=== PATIENT | male | born 1980 | race Caucasian/White ===

== ENCOUNTER 2016-12-24 18:27 | Emergency (ER) | payer OTHER ==
[~2016-12-24] VITALS: Ht 167.6 cm; Wt 76.8 kg
[2016-12-24 18:33] VITALS: TEMP 36.7; Ht 167.6 cm; Wt 76.8 kg
[2016-12-24] MEDS ORDERED: IBUP-1427 PO (19:52)
--- NOTE | 2016-12-24 19:53 | DIAGNOSTIC IMAGING REPORT ---
CT SCAN OF THE FACIAL BONES WITHOUT IV CONTRAST CLINICAL HISTORY: Facial injury. COMPARISON STUDY: No priors. TECHNIQUE: High-resolution CT scan of the facial bones is performed. Images are reviewed in the axial, sagittal, and coronal planes. IV contrast was not administered for this examination. CT DOSE: 646.92 mGy.cm FINDINGS: The skeletal structures are well mineralized. There is a comminuted fracture of the left orbital floor with depressed fragments and herniation of orbital fat. There is no evidence of extraocular muscle entrapment. There is gas present within the left orbital space. There is mild left-sided proptosis. No orbital hematoma is clearly identified. The right bony orbit is intact and the right-sided orbital contents are within normal limits. The zygomatic arches, nasal bones, and pterygoid plates are preserved. There is rightward deviation of the bony nasal septum. The maxilla and mandible are intact. Hyperdense fluid within the left maxillary antrum is consistent with blood. The remaining paranasal sinuses and the mastoid air cells are clear. The visualized calvarium and upper cervical spine are maintained. Partially imaged brain parenchyma is within normal limits. There is left periorbital and premalar soft tissue contusion with foci of gas within the superficial and deep left facial soft tissues. There is a large periapical lucency seen involving the most posterior left maxillary molar as well as the left maxillary central incisor. IMPRESSION: 1. There is a comminuted left orbital floor fracture with depressed fragments and herniation of orbital fat. 2. There is mild left-sided proptosis and gas within the left orbital space. There is no clear evidence of orbital hematoma or extraocular muscle entrapment. 3. No additional fracture is seen. 4. There is left periorbital and premalar soft tissue contusion with foci of gas within the subcutaneous and deep left facial soft tissue. 5. Layering blood is present within the left maxillary antrum. 6. There are large periapical lucencies involving maxillary teeth as above. Follow-up with dentistry is recommended. Electronically signed by: Nilson Miles M.D. 12/24/2016 7:51 PM Dictated Date/Time: 12/24/2016 7:43 PM
[2016-12-24] MEDS ORDERED: AMPICILLIN/SULBACTAM SOD INJ 3,000 MG in SODIUM CHLORIDE 0.9% 100ML 100 ML IV STA (20:17)
[2016-12-24 20:34] LABS: BASO % 0.6 %; BASO ABS # 0.05 K/uL (0-0.2); COMPLETE YES; EOS % 2.5 %; HEMATOCRIT 40.6 % (42-52); IG% 0.1 %; LYMPH % 44.1 %; LYMPH ABS # 3.57 K/uL (1.2-3.4); MEAN CELL VOLUME 83.7 fL (80-100); MEAN CORPUSCULAR HEMOGLOBIN 30.5 pg (25-34); MEAN CORPUSCULAR HGB CONC 36.5 g/dl (32-36); MEAN PLATELET VOLUME 9.9 fL (7.4-10.4); MONO % 8.3 %; NEUT % 44.4 %; PLATELET COUNT 230 K/uL (130-400); RED BLOOD COUNT 4.85 M/uL (4.7-6.1); WHITE BLOOD COUNT 8.09 K/uL (4.8-10.8)
[2016-12-24 20:57] LABS: BUN/CREATININE RATIO 11.5 (10-20); CALCIUM 8.5 mg/dl (8.5-10.1); CREATININE 0.99 mg/dl (0.60-1.40); POTASSIUM 3.7 mmol/L (3.5-5.1)
[2016-12-24] MEDS ORDERED: AMOX875T PO (21:19)
[2016-12-24 21:30] VITALS: BP 142/80; PULSE 61; O2SAT 98
--- NOTE | 2016-12-24 23:17 | EMERGENCY ROOM VISIT NOTE ---
History First contact with patient: 19:00 Chief Complaint: FACIAL PAIN/INJURY Stated Complaint: RIGHT EYE PAIN History of Present Illness The patient is a 36 year old male [facility] inmate who presents to the Emergency Room with complaints of a left facial injury after he accidentally ran into a pull up bar while pushing a snow shovel. The patient reports that he was moving at a high rate of speed. The patient denies any loss of consciousness or neck pain. The patient reports that he did blow his nose after the injury and noticed swelling of the soft tissue around his left eye. The patient denies any blurred or double vision. He does notice some mild discomfort in the eye itself with movement. He denies any epistaxis. He rates his discomfort a 7 out of 10. Tetanus immunization is up-to-date. Review of Systems 10 system review was performed and was negative except for pertinent positives and negatives as indicated in history of present illness Past Medical/Surgical History Medical Problems: (1) Hepatitis C (2) Hypertension Surgical Problems: (1) No history of previous surgery Family History Unknown Social History Smoking Status: Current Every Day Smoker Alcohol Use: none Marital Status: single Housing Status: other (incarcerated) Current/Historical Medications Scheduled Amoxicillin & Pot Clavulanate (Augmentin 875-125 mg), 1 TAB PO BID Scheduled PRN Ibuprofen Tab (Motrin), 600 MG PO Q6H PRN for Pain Allergies Coded Allergies: No Known Allergies (Unverified , 12/24/16) Physical Exam Vital Signs Date Time Temp Pulse Resp B/P Pulse Ox O2 Delivery O2 Flow Rate FiO2 12/24/16 21:30 61 18 142/80 98 12/24/16 21:17 55 16 133/89 95 Room Air 12/24/16 20:41 68 18 127/91 97 Room Air 12/24/16 18:33 36.7 65 18 159/99 97 Room Air Physical Exam CONSTITUTIONAL: Healthy and well nourished. Alert and oriented X 3 with positive affect. Patient does not appear in any acute distress. HEENT: Patient has significant left periorbital edema. Globe is intact without subconjunctival hemorrhage. No hemotympanum noted. Patient has mild discomfort with extraocular movements, however no signs of entrapment. Pupils equal, round and reactive. No epistaxis noted. The patient does have a superficial laceration under the eye that will not require primary closure. The patient has notable tenderness to palpation of the inferior orbital rim. NECK: Full active range of motion without discomfort. RESPIRATORY: Clear to auscultation bilaterally with no wheezing, crackles, rhonchi or stridor. CARDIOVASCULAR: Regular rate and rhythm with no murmurs, rubs or gallops. MUSCULOSKELETAL: Full range of motion of all joints without discomfort. INTEGUMENTARY: No rash or other significant dermatologic conditions noted. NEUROLOGIC: Cranial nerves II-XII grossly intact. No focal neurologic deficits noted. Medical Decision & Procedures ER Provider Diagnostic Interpretation: Noncontrast CT of the facial bones shows a comminuted and depressed left orbital floor fracture. Radiologist report is as follows: CT SCAN OF THE FACIAL BONES WITHOUT IV CONTRAST CLINICAL HISTORY: Facial injury. COMPARISON STUDY: No priors. TECHNIQUE: High-resolution CT scan of the facial bones is performed. Images are reviewed in the axial, sagittal, and coronal planes. IV contrast was not administered for this examination. CT DOSE: 646.92 mGy.cm FINDINGS: The skeletal structures are well mineralized. There is a comminuted fracture of the left orbital floor with depressed fragments and herniation of orbital fat. There is no evidence of extraocular muscle entrapment. There is gas present within the left orbital space. There is mild left-sided proptosis. No orbital hematoma is clearly identified. The right bony orbit is intact and the right-sided orbital contents are within normal limits. The zygomatic arches, nasal bones, and pterygoid plates are preserved. There is rightward deviation of the bony nasal septum. The maxilla and mandible are intact. Hyperdense fluid within the left maxillary antrum is consistent with blood. The remaining paranasal sinuses and the mastoid air cells are clear. The visualized calvarium and upper cervical spine are maintained. Partially imaged brain parenchyma is within normal limits. There is left periorbital and premalar soft tissue contusion with foci of gas within the superficial and deep left facial soft tissues. There is a large periapical lucency seen involving the most posterior left maxillary molar as well as the left maxillary central incisor. IMPRESSION: 1. There is a comminuted left orbital floor fracture with depressed fragments and herniation of orbital fat. 2. There is mild left-sided proptosis and gas within the left orbital space. There is no clear evidence of orbital hematoma or extraocular muscle entrapment. 3. No additional fracture is seen. 4. There is left periorbital and premalar soft tissue contusion with foci of gas within the subcutaneous and deep left facial soft tissue. 5. Layering blood is present within the left maxillary antrum. 6. There are large periapical lucencies involving maxillary teeth as above. Follow-up with dentistry is recommended. Laboratory Results 12/24/16 20:20 Red Blood Count 4.85, Mean Corpuscular Volume 83.7, Mean Corpuscular Hemoglobin 30.5, Mean Corpuscular Hemoglobin Concent 36.5, Mean Platelet Volume 9.9, Neutrophils (%) (Auto) 44.4, Lymphocytes (%) (Auto) 44.1, Monocytes (%) (Auto) 8.3, Eosinophils (%) (Auto) 2.5, Basophils (%) (Auto) 0.6, Neutrophils # (Auto) 3.59, Lymphocytes # (Auto) 3.57, Monocytes # (Auto) 0.67, Eosinophils # (Auto) 0.20, Basophils # (Auto) 0.05 12/24/16 20:20 Test 12/24/16 20:20 White Blood Count 8.09 K/uL (4.8-10.8) Red Blood Count 4.85 M/uL (4.7-6.1) Hemoglobin 14.8 g/dL (14.0-18.0) Hematocrit 40.6 % (42-52) Mean Corpuscular Volume 83.7 fL (80-100) Mean Corpuscular Hemoglobin 30.5 pg (25-34) Mean Corpuscular Hemoglobin Concent 36.5 g/dl (32-36) Platelet Count 230 K/uL (130-400) Mean Platelet Volume 9.9 fL (7.4-10.4) Neutrophils (%) (Auto) 44.4 % Lymphocytes (%) (Auto) 44.1 % Monocytes (%) (Auto) 8.3 % Eosinophils (%) (Auto) 2.5 % Basophils (%) (Auto) 0.6 % Neutrophils # (Auto) 3.59 K/uL (1.4-6.5) Lymphocytes # (Auto) 3.57 K/uL (1.2-3.4) Monocytes # (Auto) 0.67 K/uL (0.11-0.59) Eosinophils # (Auto) 0.20 K/uL (0-0.5) Basophils # (Auto) 0.05 K/uL (0-0.2) RDW Standard Deviation 37.8 fL (36.4-46.3) RDW Coefficient of Variation 12.5 % (11.5-14.5) Immature Granulocyte % (Auto) 0.1 % Immature Granulocyte # (Auto) 0.01 K/uL (0.00-0.02) Anion Gap 8.0 mmol/L (3-11) Est Creatinine Clear Calc Drug Dose 99.7 ml/min Estimated GFR () 112.3 Estimated GFR (Non- 96.9 BUN/Creatinine Ratio 11.5 (10-20) Calcium Level 8.5 mg/dl (8.5-10.1) Medications Administered Medications (Trade) Dose Ordered Sig/Jose M Route Start Time Stop Time Status Last Admin Dose Admin Ampicillin Sodium/ Sulbactam Sodium/ Sodium Chloride (Unasyn Inj/Nss 100ml) 108 ml @ 200 mls/hr NOW STAT IV 12/24/16 20:17 12/24/16 20:49 DC 12/24/16 20:41 200 MLS/HR ED Course Patient history and physical exam were performed. Nurse's notes were reviewed. The patient refused any analgesics on initial exam. Noncontrast CT of the facial bones shows a comminuted left maxillary floor fracture as described in the previous Diagnostic Interpretation section. Findings were discussed with the patient. The case was also discussed with Dr. Mckeon, who suggested IV antibiotics and maxillofacial consultation. IV access was established, and labs were drawn. The patient was administered Unasyn 3 g IV infusion. He still refused any analgesics. The case was then discussed with Dr. Moran, maxillary facial surgeon, who recommended IV and prescription antibiotics. He will see the patient in his office tomorrow. The patient was encouraged to intermittently apply ice to the eye for swelling. Ibuprofen or Tylenol as needed for pain. He prescription was provided for Augmentin 875 mg twice a day 10 days. The patient was encouraged to sleep with his head elevated. He was also instructed to avoid blowing his nose. Contact information was provided for Dr. Moran's office. The patient was happy with plan of care, and rated his pain a 3 out of 10 at the time of discharge. Medical Decision Impression Primary Impression: Fracture of orbital floor Additional Impression: Facial laceration Departure Information Prescriptions Amoxicillin & Pot Clavulanate (Augmentin 875-125 mg) 1 Tab Tab 1 TAB PO BID for 10 Days, #20 TAB Prov: Morris Sal PA 12/24/16 Patient Instructions [facility] Problem Qualifiers Primary Impression: Fracture of orbital floor Encounter type: initial encounter Fracture type: closed Laterality: left Qualified Codes: S02.32XA - Fracture of orbital floor, left side, initial encounter for closed fracture Additional Impression: Facial laceration Encounter type: initial encounter Qualified Codes: S01.81XA - Laceration without foreign body of other part of head, initial encounter
== END 2016-12-24 21:30 | disposition home or self-care (01) ==
LOC: C.EDB 18:31 → C.EDD 21:30
DX: S01.81XA Laceration without foreign body of other part of head, initial encounter (principal); S02.32XA Fracture of orbital floor, left side, initial encounter for closed fracture; F17.210 Nicotine dependence, cigarettes, uncomplicated; I10 Essential (primary) hypertension; W22.8XXA Striking against or struck by other objects, initial encounter; Y93.H1 Activity, digging, shoveling and raking

== ENCOUNTER 2020-04-21 15:08 | Inpatient (IN) ==
[2020-04-21] MEDS ORDERED: PIPERACILLIN/TAZOBACTAM 4.5 GM/120 ML BAG IV STA (16:24)
[2020-04-21] MEDS ORDERED: SODIUM CHLORIDE 0.9% 1000ML 1,000 ML IV SCH (16:30)
--- NOTE | 2020-04-21 16:32 | Emergency Department Note ---
History of Present Illness General Chief complaint: Ear Pain/Problem Stated complaint: R EAR PAIN GOING DOWN NECK AND CHEST Time Seen by Provider: 04/21/20 16:16 Source: patient Mode of arrival: other ([facility] staff) Limitations: no limitations History of Present Illness Provider complaint: right neck infection Onset (ago): week(s) 2 Maximum Pain Intensity: 10 This is a 48-year-old male who presents to the ED with a chief complaint of a right-sided neck infection. Patient states that his symptoms started in February. He had some ear discomfort and was started on some eardrops. He felt that some toilet paper was left in his ear after he placed it in there. Couple of weeks ago he started having increasing swelling and pain in the right neck region just inferior to the ear tracking along the sternocleidomastoid muscle. The patient has not had any fevers, nausea vomiting. He was evaluated by the nurse and came in for further evaluation. The patient has some discomfort with palpation of the area as well as movement of the head. He has not been on any antibiotics recently. Denies any headaches. No vomiting. Home Medications Home Medications Medication Instructions Recorded Confirmed Type celecoxib [Celebrex] 200 mg PO DAILY 04/21/20 04/21/20 History levofloxacin 750 mg PO DAILY 04/21/20 04/21/20 History lisinopril-hydrochlorothiazide 1 tab PO DAILY 04/21/20 04/21/20 History Allergies Allergy/AdvReac Type Severity Reaction Status Date / Time No Known Allergies Allergy Unverified 04/21/20 16:30 Past Med/Surg History Social History Feels Safe at Home: Yes Smoking Status: Current every day smoker Review of Systems A total of 10 systems reviewed and were otherwise negative Physical Exam Vital Signs Vital Signs - 24 hr 04/21/20 15:21 04/21/20 17:00 04/21/20 17:03 Temperature 37.6 C H Temperature Source Oral Pulse Rate 120 H 103 H 105 H Pulse Rate from SpO2 Sensor 104 H 107 H Respiratory Rate 20 16 23 Respiratory Effort / Characteristics Non-Labored Spontaneous Respiratory Depth Normal Respiratory Pattern Regular Blood Pressure 164/88 H 149/90 H Blood Pressure Mean 113 108 Blood Pressure Position Lying Pulse Oximetry 98 98 98 Oxygen Delivery Method Room Air Sepsis Recent Fever Within 48 Hours No Sepsis New/Unexplained Change in Mental Status No Sepsis Action Taken by Nursing No Action Required 04/21/20 17:30 Temperature Temperature Source Pulse Rate 102 H Pulse Rate from SpO2 Sensor 100 H Respiratory Rate 18 Respiratory Effort / Characteristics Respiratory Depth Respiratory Pattern Blood Pressure 142/86 H Blood Pressure Mean 107 Blood Pressure Position Pulse Oximetry 97 Oxygen Delivery Method Sepsis Recent Fever Within 48 Hours Sepsis New/Unexplained Change in Mental Status Sepsis Action Taken by Nursing CONSTITUTIONAL/VITAL SIGNS: Reviewed / noted above. GENERAL: Non-toxic in appearance. INTEGUMENTARY: Warm, dry, and [place]. HEAD: Normocephalic. EYES: without scleral icterus or trauma. ENT/OROPHARYNX: clear and moist. The patient has erythema, tenderness and swelling tracking along the SCM from the ear to the clavicle. LYMPHADENOPATHY/NECK: Is supple without lymphadenopathy or meningismus. RESPIRATORY: Lungs clear and equal. CARDIOVASCULAR: Regular rate and rhythm. GI/ABDOMEN: Soft and nontender. No organomegaly or pulsatile mass. No rebound or guarding. Normal bowel sounds. EXTREMITIES: Warm and well perfused. BACK: No CVA tenderness. NEUROLOGICAL: Intact without focal deficits. PSYCHIATRIC: normal affect. MUSCULOSKELETAL: Normally developed with good muscle tone. TRIAGE NURSING DOCUMENTATION REVIEWED. Course Administered Medications Ioversol (Optiray 320 100ml) 93 ml IV ONCE PRN PRN Reason: Interaction Checking Stop: 04/25/20 17:47 Last Admin: 04/21/20 17:49 Dose: 93 ml Documented by: [id number] Discontinued Medications Sodium Chloride (Nss 1000ml) 1,000 mls @ 999 mls/hr IV .Q1H1M ALLISON Stop: 04/21/20 17:30 Last Infusion: 04/21/20 17:41 Dose: 0 mls/hr Documented by: [id number] Admin: 04/21/20 16:46 Dose: 999 mls/hr Documented by: [id number] Piperacillin Sod/Tazobactam Sod (Zosyn) 4.5 gm in 120 mls @ 200 mls/hr IV NOW STA Stop: 04/21/20 16:59 Last Infusion: 04/21/20 16:46 Dose: 0 mls/hr Documented by: [id number] Admin: 04/21/20 16:45 Dose: 200 mls/hr Documented by: [id number] Medical Decision Making Differential Diagnosis Differential includes cellulitis, lymphangitis, systemic infection, Ludewig's a ngina, clotting in vasculature Medical Records Attestation: I reviewed the patient's medical records. Home Medications Current Medication List: was personally reviewed by me Laboratory Data Attestation: I reviewed the patient's lab results. Result diagrams: 04/21/20 16:30 04/21/20 16:30 Lab Results 04/21/20 04/21/20 04/21/20 Range/Units 16:30 16:30 16:30 WBC 13.88 H (4.8-10.8) K/uL RBC 5.18 (4.7-6.1) M/uL Hgb 16.3 (14.0-18.0) g/dL Hct 45.2 (42-52) % MCV 87.3 (80-100) fL MCH 31.5 (25-34) pg MCHC 36.1 H (32-36) g/dL RDW Std Deviation 40.9 (36.4-46.3) fL RDW Coeff of Wilmer 12.8 (11.5-14.5) % Plt Count 287 (130-400) K/uL MPV 9.7 (7.4-10.4) fL Immature Gran % (Auto) 0.7 % Neut % (Auto) 71.4 % Lymph % (Auto) 14.8 % Mayes % (Auto) 12.3 % Eos % (Auto) 0.6 % Baso % (Auto) 0.2 % Immature Gran # (Auto) 0.10 H (0.00-0.02) K/uL Neut # (Auto) 9.90 H (1.4-6.5) K/uL Lymph # (Auto) 2.06 (1.2-3.4) K/uL Mayes # (Auto) 1.71 H (0.11-0.59) K/uL Eos # (Auto) 0.08 (0-0.5) K/uL Baso # (Auto) 0.03 (0-0.2) K/uL ESR 40 H (0-14) mm/hr PT 10.3 (9.0-12.0) Seconds INR 1.0 (0.9-1.1) Sodium (136-145) mmol/L Potassium (3.5-5.1) mmol/L Chloride (98-107) mmol/L Carbon Dioxide (21-32) mmol/L Anion Gap (3-11) BUN (7-18) mg/dl Creatinine (0.6-1.4) mg/dl Est Cr Clr Drug Dosing ml/min Est GFR ( Amer) Est GFR (Non-Af Amer) BUN/Creatinine Ratio (10-20) Glucose (70-99) mg/dl Calcium (8.5-10.1) mg/dl Total Bilirubin (0.2-1) mg/dl AST (15-37) U/L ALT (12-78) U/L Alkaline Phosphatase (45-117) U/L C-Reactive Protein (0-0.29) mg/dl Total Protein (6.4-8.2) gm/dl Albumin (3.4-5.0) gm/dl Globulin (2.5-4.0) gm/dl Albumin/Globulin Ratio (0.9-2) Procalcitonin (0-0.5) ng/ml 04/21/20 04/21/20 Range/Units 16:30 16:30 WBC (4.8-10.8) K/uL RBC (4.7-6.1) M/uL Hgb (14.0-18.0) g/dL Hct (42-52) % MCV (80-100) fL MCH (25-34) pg MCHC (32-36) g/dL RDW Std Deviation (36.4-46.3) fL RDW Coeff of Wilmer (11.5-14.5) % Plt Count (130-400) K/uL MPV (7.4-10.4) fL Immature Gran % (Auto) % Neut % (Auto) % Lymph % (Auto) % Mayes % (Auto) % Eos % (Auto) % Baso % (Auto) % Immature Gran # (Auto) (0.00-0.02) K/uL Neut # (Auto) (1.4-6.5) K/uL Lymph # (Auto) (1.2-3.4) K/uL Mayes # (Auto) (0.11-0.59) K/uL Eos # (Auto) (0-0.5) K/uL Baso # (Auto) (0-0.2) K/uL ESR (0-14) mm/hr PT (9.0-12.0) Seconds INR (0.9-1.1) Sodium 137 (136-145) mmol/L Potassium 3.1 L (3.5-5.1) mmol/L Chloride 101 (98-107) mmol/L Carbon Dioxide 32 (21-32) mmol/L Anion Gap 3.0 (3-11) BUN 10 (7-18) mg/dl Creatinine 0.96 (0.6-1.4) mg/dl Est Cr Clr Drug Dosing 82.8 ml/min Est GFR ( Amer) 107.1 Est GFR (Non-Af Amer) 92.4 BUN/Creatinine Ratio 9.9 L (10-20) Glucose 122 H (70-99) mg/dl Calcium 9.3 (8.5-10.1) mg/dl Total Bilirubin 0.6 (0.2-1) mg/dl AST 18 (15-37) U/L ALT 26 (12-78) U/L Alkaline Phosphatase 68 (45-117) U/L C-Reactive Protein 5.96 H (0-0.29) mg/dl Total Protein 8.3 H (6.4-8.2) gm/dl Albumin 3.6 (3.4-5.0) gm/dl Globulin 4.7 H (2.5-4.0) gm/dl Albumin/Globulin Ratio 0.8 L (0.9-2) Procalcitonin 0.10 (0-0.5) ng/ml Imaging Data Attestation: I personally reviewed and interpreted this imaging study as follows: My Impression: Chest x-ray: Negative for acute disease. Radiologist's Impression: CT scan of the neck soft tissue iMPRESSION: 1. Diffuse right sternocleidomastoid myositis with considerable surrounding cellulitis. 2. 1 cm focal abscess at this superior extent of this inflammatory process. 3. Moderate reactive right cervical adenopathy with nodes measuring to 1.5 cm. 4. No evidence for airway compromise or midline displacement. Chest x-ray: No acute process Blood Pressure Blood Pressure Findings: Elevated blood pressure MDM Narrative This is a 48-year-old male who presents to the ED with a chief complaint of a right-sided neck infection. Patient states that his symptoms started in February. He had some ear discomfort and was started on some eardrops. He felt that some toilet paper was left in his ear after he placed it in there. Couple of weeks ago he started having increasing swelling and pain in the right neck region just inferior to the ear tracking along the sternocleidomastoid muscle. The patient has not had any fevers, nausea vomiting. He was evaluated by the nurse and came in for further evaluation. The patient has some discomfort with palpation of the area as well as movement of the head. He has not been on any antibiotics recently. Denies any headaches. No vomiting. The patient's vital signs reveal hypertension and tachycardia. Currently afebrile. His exam reveals swelling along the SCM with redness and tenderness from the ear to the clavicle. The patient's white blood cell count and inflammatory markers are elevated. The CT scan as noted above. There is diffuse myositis of the sternocleidomastoid muscle. Considerable surrounding cellulitis and a 1 cm focal abscess at the superior extent of the inflammatory process is noted. The patient was given IV Zosyn and IV fluids. He was also given some IV Toradol for the pain. The patient will be admitted by the hospitalist for further inpatient evaluation and care. Impression & Plan Myositis, Cellulitis and abscess of neck Discharge Plan Visit Data Chief Complaint: Ear Pain/Problem Stated Complaint: R EAR PAIN GOING DOWN NECK AND CHEST ED Provider: Kirk Scruggs Discharge Problem: Myositis, Cellulitis and abscess of neck Patient Disposition: Being Evaluated by Hospitalist Forms Stand Alone Forms: [facility], [facility] Emergency Department, Important Visit Information Prescriptions Prescriptions: No Action celecoxib [Celebrex] 200 mg Capsule 200 mg PO DAILY RF: 0 lisinopril-hydrochlorothiazide 10-12.5 mg Tablet 1 tab PO DAILY RF: 0 levofloxacin 750 mg Tablet 750 mg PO DAILY RF: 0 Referrals Referrals: Ely MCKEON [Primary Care Provider] -
[2020-04-21 16:56] LABS: Basophils # (auto) 0.03 K/uL (0-0.2); Basophils % (auto) 0.2 %; Eosinophils # (auto) 0.08 K/uL (0-0.5); Eosinophils % (auto) 0.6 %; Hematocrit (blood only) 45.2 % (42-52); Hemoglobin 16.3 g/dL (14.0-18.0); Immature Granulocytes % (auto) 0.7 %; Lymphocytes # (auto) 2.06 K/uL (1.2-3.4); Lymphocytes % (auto) 14.8 %; Mean Corpuscular Hemoglobin 31.5 pg (25-34); Mean Corpuscular Hgb Conc 36.1 g/dL (32-36); Mean Corpuscular Volume 87.3 fL (80-100); Mean Platelet Volume 9.7 fL (7.4-10.4); Monocytes # (auto) 1.71 K/uL (0.11-0.59); Monocytes % (auto) 12.3 %; Neutrophils % (auto) 71.4 %; Platelet Count 287 K/uL (130-400); RDW Coefficient of Variation 12.8 % (11.5-14.5); RDW Standard Deviation 40.9 fL (36.4-46.3); Red Blood Count 5.18 M/uL (4.7-6.1); White Blood Count 13.88 K/uL (4.8-10.8)
--- NOTE | 2020-04-21 17:02 | XRay Report ---
XR chest 1V portable CLINICAL HISTORY: neck infection infection COMPARISON STUDY: No previous studies for comparison. FINDINGS: The bones soft tissues and hemidiaphragms are normal. The cardiomediastinal silhouette is n ormal. The lungs are clear. The pulmonary vasculature is normal. IMPRESSION: Negative chest. ACT 112: Negative or not required by law. The above report was generated using voice recognition software. It may contain grammatical, syntax or spelling errors. Electronically signed by: Adelso Perez M.D. 04/21/2020 5:01 PM
[2020-04-21 17:06] LABS: Prothrombin Time 10.3 Seconds (9.0-12.0)
[2020-04-21 17:12] LABS: Albumin Level 3.6 gm/dl (3.4-5.0); BUN Creatinine Ratio 9.9 (10-20); C Reactive Protein 5.96 mg/dl (0-0.29); Calcium 9.3 mg/dl (8.5-10.1); Creatinine Clr Calc Pharmacy 82.8 ml/min; Est GFR (African American) 107.1; Est GFR (Non-African American) 92.4; Potassium 3.1 mmol/L (3.5-5.1)
[2020-04-21 17:15] LABS: Albumin Globulin Ratio 0.8 (0.9-2); Bilirubin,Total 0.6 mg/dl (0.2-1); Globulin 4.7 gm/dl (2.5-4.0); Total Protein 8.3 gm/dl (6.4-8.2)
[2020-04-21] MEDS ORDERED: IOVERSOL 100ml IV PRN (17:48)
--- NOTE | 2020-04-21 17:58 | CT Scan Report ---
Study: CT soft tissue neck. HISTORY: Infection. FINDINGS: Generalized edematous change of the right sternocleidomastoid muscle. This extends from the level of the right posterior mandibular angle to the level of the mid soft tissue neck region. This is consistent with a diffuse cellulitis and potentially a component of myositis. There is a 1 cm focal abscess at the superior extent of the cellulitis involving the anterior aspect of the right sternocleidomastoid muscle. There are findings of moderate infiltrative change of the rodriguez bcutaneous fat and surrounding fascial planes. There is no evidence for airway compromise. The submandibular glands are unremarkable. Several right cervical reactive nodes are present measuring up to 1.4 cm. The inflammatory change abuts the right carotid sheath but there is no definitive involvement of that structure. IMPRESSION: 1. Diffuse right sternocleidomastoid myositis with considerable surrounding cellulitis. 2. 1 cm focal abscess at this superior extent of this inflammatory process. 3. Moderate reactive right cervical adenopathy with nodes measuring to 1.5 cm. 4. No evidence for airway compromise or midline displacement. Electronically signed by: Adelso Perez M.D. 04/21/2020 5:56 PM
[2020-04-21] MEDS ORDERED: KETOROLAC 30 MG/ML VIAL IV STA (18:11)
--- NOTE | 2020-04-21 19:37 | History & Physical Report ---
Date of Service April 21, 2020 Assessment & Plan (1) Cellulitis and abscess of neck: Continue Zosyn IV given in ER. Will add daptomycin given failed outpatient antibiotics and from [facility] to cover for MRSA. Consider ENT referral if not improving Unclear if truly infected given no mastoiditis seen on CT. Monitor CBC and inflammatory markers periodically to assess response. Non-infective myositis appears less likely at this stage given history of infection in his ear with possible TM perforation (although not seen on exam today) (2) Hypertension: Continue lisinopril/HCTZ (3) DVT prophylaxis: SCDs Admission and Anticipated Discharge Date Admission Date: 04/21/2020 History of Present Illness Chief Complaint: Left sternocleidomastoid pain and cellulitis Primary Care Provider: [facility] Domenic Marino Smith is a 48 year old male who presents to the ER from [facility] with right sternocleidomastoid swelling and pain for the last week getting progressively worse. He denies any fevers or chills. He reports a 1 month history that started with right ear pain and suspected external otitis externa requiring antibiotic ear drop causing significant pain which and he was using toilet paper in his ear to help with the pain. He returned to the [facility] 4-5 days and they were removing the tissue paper. At some point they also noted he had a perforated ear drum and he was having vertigo at that time. Started treatment with Augmentin approximately 2 weeks ago prior to neck swelling with a 7 day course. He feels the neck swelling started after he was started on the Augmentin. He then received a 5 day course of prednisone after the course of Augmentin although I am unclear on the reason for this. He reports 2 days ago he was switched to Levaquin due to the neck swelling but it has continued to progress despite these interventions. He denies any fevers or chills. It is significantly painful on palpation. He has never had anything similar to this before. No prior chronic problems with his ears. He does note a history of a "popped" clavicle on this side however although I am unclear what he means by this he says he was diagnosed by a physical therapist from all his weight lifting. Allergies Allergy/AdvReac Type Severity Reaction Status Date / Time No Known Allergies Allergy Unverified 04/21/20 16:30 Home Medications Home Medications Medication Instructions Recorded Confirmed Type celecoxib [Celebrex] 200 mg PO DAILY 04/21/20 04/21/20 History levofloxacin 750 mg PO DAILY 04/21/20 04/21/20 History lisinopril-hydrochlorothiazide 1 tab PO DAILY 04/21/20 04/21/20 History Past Med/Surg History Medical History (Updated 04/22/20 @ 11:52 by Austin Tolentino MD) Hepatitis C Hypertension Social History Preferred Language: Tajik Communication Ability: Effective Beliefs That Will Affect Care: None Current Living Situation: Other Current Living Situation Comment: [facility] Other Information That Helps Us Care for You: No Feels Safe at Home: Yes Safety Concerns: Feels Safe At This Time Smoking Status: Former smoker Tobacco Type: cigarettes ; Do You Dip or Chew Tobacco: No ; Smoking End Date: May 2019 ; Second Hand Exposure: No ; Tobacco Cessation Education Requested by Patient: No Hx Alcohol Use: No Hx Substance Use: No Review of Systems Review of Systems: All systems reviewed & are unremarkable except as noted in HPI & below Physical Exam Constitutional: WD/WN, vitals as above Eyes: PERRL, conjunctivae normal, anicteric sclerae ENMT: Ears: + external ear abnormality (peeling skin in right ear canal but otherwise unremarkable); no TM abnormality (although unable to visualize all of right TM no perforation noted) Neck: + abnormal visual inspection (erythema and swelling along right SCM with lump at superior aspect) Respiratory: normal respiratory effort, lungs clear to auscultation Cardiovascular: RRR, no murmur, no edema Gastrointestinal (Abdomen): normal bowel sounds, soft, nontender, no hepatosplenomegaly Musculoskeletal: no cyanosis or clubbing, extremities motor strength 5/5 Skin: Erythema and swelling surrounding right SCM Neurologic: moves all extremities and awake; no focal motor deficits and not confused Motor/Sensory: no tremor Psychiatric: A+Ox3, euthymic affect Lymphatic: + cervical lymphadenopathy (right sided); no subclavicular lymphadenopathy Results & Data Results & Data ([facility]) Vital Signs (Past 12 Hours) Vital Signs Temp Pulse Resp BP Pulse Ox 04/21/20 19:00 98 H 14 134/86 97 04/21/20 18:30 96 H 16 134/82 98 04/21/20 18:00 97 H 21 161/111 H 98 04/21/20 17:30 102 H 18 142/86 H 97 04/21/20 17:03 105 H 23 98 04/21/20 17:00 103 H 16 149/90 H 98 04/21/20 15:21 37.6 C H 120 H 20 164/88 H [address] soft tissue neck. IMPRESSION: 1. Diffuse right sternocleidomastoid myositis with considerable surrounding cellulitis. 2. 1 cm focal abscess at this superior extent of this inflammatory process. 3. Moderate reactive right cervical adenopathy with nodes measuring to 1.5 cm. 4. No evidence for airway compromise or midline displacement. ECG Indication: other Rate (beats per minute): 84 Rhythm: normal sinus Findings: no acute ischemic change Comparison ECG Date: no prior available Code Status & VTE Plan Code Status Full VTE Prophylaxis Plan VTE Prophylaxis will be ordered: Yes Reason for no VTE drug order: Treatment not indicated PG Care Time/CCT Total # of Minutes Spent Total Time Spent with Patient: Total time spent is greater than 50% in coordination of care (as documented) at patient's floor/unit and/or counseling patient: Coding Level of Care Code 42958 Initial Inpt Care Lvl 3 Diagnoses Cellulitis and abscess of neck L03.221; L02.11 Hypertension I10 DVT prophylaxis Z29.9
[2020-04-21] MEDS ORDERED: DAPTOMYCIN CONSULT ACTIVE PRN (19:38)
[2020-04-21] MEDS ORDERED: POTASSIUM CHLORIDE 20 MEQ TABCR PO STA (19:38)
[2020-04-21] MEDS ORDERED: DAPTOmycin 250 MG in SYRINGE 0 ML IV ONE (20:00)
[2020-04-21] MEDS ORDERED: POLYETHYLENE (MIRALAX) 17 GM PACK PO PRN (21:07)
[2020-04-21] MEDS ORDERED: ONDANSETRON INJ 2 MG/ML 2 ML VIAL IV PRN (21:07)
[2020-04-21] MEDS ORDERED: PIPERACILL/TAZOBAC CONSULT ACTIVE PRN (21:57)
[2020-04-21] MEDS: ACETAMINOPHEN 325 MG TAB PO PRN (21:57)
[2020-04-21] MEDS: PIPERACILLIN/TAZOBACTAM 3.375 GM in DEXTROSE 5% 100 ML IV SCH (22:20)
[2020-04-22] MEDS: KETOROLAC 30 MG/ML VIAL IV PRN ×4 (00:48→21:00)
[2020-04-22] MEDS: LACTATED RINGER'S 1,000 ML IV SCH ×2 (01:49→09:42)
[2020-04-22] MEDS: PIPERACILLIN/TAZOBACTAM 3.375 GM in DEXTROSE 5% 100 ML IV SCH ×3 (05:44→21:45)
[2020-04-22] MEDS: ACETAMINOPHEN 325 MG TAB PO PRN ×2 (05:44→19:31)
[2020-04-22 06:24] LABS: Basophils # (auto) 0.03 K/uL (0-0.2); Basophils % (auto) 0.2 %; Eosinophils # (auto) 0.18 K/uL (0-0.5); Eosinophils % (auto) 1.2 %; Hematocrit (blood only) 41.1 % (42-52); Hemoglobin 14.7 g/dL (14.0-18.0); Immature Granulocytes # (auto) 0.11 K/uL (0.00-0.02); Immature Granulocytes % (auto) 0.7 %; Lymphocytes # (auto) 3.39 K/uL (1.2-3.4); Lymphocytes % (auto) 22.4 %; Mean Corpuscular Hemoglobin 31.3 pg (25-34); Mean Corpuscular Hgb Conc 35.8 g/dL (32-36); Mean Corpuscular Volume 87.6 fL (80-100); Mean Platelet Volume 9.7 fL (7.4-10.4); Monocytes # (auto) 1.94 K/uL (0.11-0.59); Monocytes % (auto) 12.8 %; Neutrophils # (auto) 9.46 K/uL (1.4-6.5); Neutrophils % (auto) 62.7 %; Platelet Count 293 K/uL (130-400); RDW Coefficient of Variation 12.9 % (11.5-14.5); RDW Standard Deviation 41.4 fL (36.4-46.3); Red Blood Count 4.69 M/uL (4.7-6.1); White Blood Count 15.11 K/uL (4.8-10.8)
[2020-04-22] MEDS ORDERED: SIMETHICONE 80 MG CHEW PO ONE (07:00)
[2020-04-22 07:08] LABS: BUN Creatinine Ratio 9.1 (10-20); Calcium 8.9 mg/dl (8.5-10.1); Creatinine Clr Calc Pharmacy 89.5 ml/min; Est GFR (African American) 104.5; Est GFR (Non-African American) 90.2; Potassium 3.3 mmol/L (3.5-5.1)
[2020-04-22] MEDS: LISINOPRIL/HCTZ 10/12.5MG TAB PO SCH (08:14)
[2020-04-22] MEDS: PANTOprazole 40 MG TAB PO SCH (08:14)
--- NOTE | 2020-04-22 16:18 | Hospitalist Progress Note ---
Date of Service April 22, 2020 Assessment & Plan (1) Cellulitis and abscess of neck: Continue Zosyn IV and daptomycin IV WBC up slightly at 15k, no fever, still with pain and swelling Unclear if truly infected given no mastoiditis seen on CT Non-infective myositis appears less likely at this stage given history of infection in his ear with possible TM perforation (although not seen on exam today) small 1cm possible abscess at superior portion of SCM plan would be to continue IV antibiotics over the weekend, consult ENT to see Friday defer to them if drainage of abscess needed (2) Hypertension: Continue lisinopril/HCTZ BP stable (3) Hypokalemia: low at 3.3 will give 10mEq PO x 4 doses check labs in AM (4) DVT prophylaxis: SCDs Admission and Anticipated Discharge Date Admission Date: April 21, 2020 Subjective patient feeling a little better, still with significant swelling and pain in right SCM reviewed labs, reviewed chart patient is breathing comfortably, swallowing easily, eating well no fever or chills WBC up slightly to 15k, K low at 3.3 Review of Systems Review of Systems: All systems reviewed & are unremarkable except as noted in HPI & below Ear, Nose, Mouth, Throat: + TMJ pain (right) and + neck lump (right sided swelling) Respiratory: no cough and no dyspnea Cardiovascular: no chest pain and no edema Gastrointestinal: no abdominal pain, no nausea, no vomiting, no constipation and no diarrhea/loose stools Physical Exam Constitutional: WD/WN, vitals as above Eyes: PERRL, conjunctivae normal, anicteric sclerae ENMT: Ears: + mastoid abnormality (tenderness right mastoid); no external ear abnormality and no TM abnormality Nose: no nasal discharge and no sinus tenderness Mouth: no oropharynx abnormality and no oral mucosal abnormality Throat: uvula midline; no posterior oropharynx abnormality Neck: + submandibular swelling (right side) and + neck tender (right SCM, swollen) Thyroid: normal thyroid Respiratory: normal respiratory effort, lungs clear to auscultation Cardiovascular: RRR, no murmur, no edema Gastrointestinal (Abdomen): normal bowel sounds, soft, nontender, no hepatospl enomegaly Musculoskeletal: no cyanosis or clubbing, extremities motor strength 5/5 Skin: no rashes, warm and dry Neurologic: patellar DTR's 2+ bilat, sensation intact and PERRL, EOMI, accommodation nl, no face palsy, no dysarthria Psychiatric: A+Ox3, euthymic affect Lymphatic: no cervical or axillary lymphadenopathy Results & Data Results & Data ([facility]) Vital Signs (Past 12 Hours) Vital Signs Temp Pulse Resp BP BP Pulse Ox 04/22/20 15:04 37.1 C 75 20 130/75 97 04/22/20 08:00 37 C 68 18 128/77 98 Laboratory Results Laboratory Results - last 24 hr 04/21/20 04/21/20 04/21/20 16:30 16:30 16:30 WBC 13.88 H RBC 5.18 Hgb 16.3 Hct 45.2 MCV 87.3 MCH 31.5 MCHC 36.1 H RDW Std Deviation 40.9 RDW Coeff of Wilmer 12.8 Plt Count 287 MPV 9.7 Immature Gran % (Auto) 0.7 Neut % (Auto) 71.4 Lymph % (Auto) 14.8 [place] % (Auto) 12.3 Eos % (Auto) 0.6 Baso % (Auto) 0.2 Immature Gran # (Auto) 0.10 H Neut # (Auto) 9.90 H Lymph # (Auto) 2.06 [place] # (Auto) 1.71 H Eos # (Auto) 0.08 Baso # (Auto) 0.03 ESR 40 H PT 10.3 INR 1.0 Sodium Potassium Chloride Carbon Dioxide Anion Gap BUN Creatinine Est Cr Clr Drug Dosing Est GFR ( Amer) Est GFR (Non-Af Amer) BUN/Creatinine Ratio Glucose Calcium Total Bilirubin AST ALT Alkaline Phosphatase C-Reactive Protein Total Protein Albumin Globulin Albumin/Globulin Ratio Procalcitonin Nasal Screen MRSA (PCR) 04/21/20 04/21/20 04/21/20 16:30 16:30 21:46 WBC RBC Hgb Hct MCV MCH MCHC RDW Std Deviation RDW Coeff of Wilmer Plt Count MPV Immature Gran % (Auto) Neut % (Auto) Lymph % (Auto) [place] % (Auto) Eos % (Auto) Baso % (Auto) Immature Gran # (Auto) Neut # (Auto) Lymph # (Auto) [place] # (Auto) Eos # (Auto) Baso # (Auto) ESR PT INR Sodium 137 Potassium 3.1 L Chloride 101 Carbon Dioxide 32 Anion Gap 3.0 BUN 10 Creatinine 0.96 Est Cr Clr Drug Dosing 82.8 Est GFR ( Amer) 107.1 Est GFR (Non-Af Amer) 92.4 BUN/Creatinine Ratio 9.9 L Glucose 122 H Calcium 9.3 Total Bilirubin 0.6 AST 18 ALT 26 Alkaline Phosphatase 68 C-Reactive Protein 5.96 H Total Protein 8.3 H Albumin 3.6 Globulin 4.7 H Albumin/Globulin Ratio 0.8 L Procalcitonin 0.10 Nasal Screen MRSA (PCR) Negative 04/22/20 04/22/20 05:54 05:54 WBC 15.11 H RBC 4.69 L Hgb 14.7 Hct 41.1 L MCV 87.6 MCH 31.3 MCHC 35.8 RDW Std Deviation 41.4 RDW Coeff of Wilmer 12.9 Plt Count 293 MPV 9.7 Immature Gran % (Auto) 0.7 Neut % (Auto) 62.7 Lymph % (Auto) 22.4 [place] % (Auto) 12.8 Eos % (Auto) 1.2 Baso % (Auto) 0.2 Immature Gran # (Auto) 0.11 H Neut # (Auto) 9.46 H Lymph # (Auto) 3.39 [place] # (Auto) 1.94 H Eos # (Auto) 0.18 Baso # (Auto) 0.03 ESR PT INR Sodium 140 Potassium 3.3 L Chloride 107 Carbon Dioxide 28 Anion Gap 5.0 BUN 9 Creatinine 0.98 Est Cr Clr Drug Dosing 89.5 Est GFR ( Amer) 104.5 Est GFR (Non-Af Amer) 90.2 BUN/Creatinine Ratio 9.1 L Glucose 106 H Calcium 8.9 Total Bilirubin AST ALT Alkaline Phosphatase C-Reactive Protein Total Protein Albumin Globulin Albumin/Globulin Ratio Procalcitonin Nasal Screen MRSA (PCR) Medications Administered Current Inpatient Medications Acetaminophen (Tylenol) 650 mg PO Q4H PRN PRN Reason: pain/fever Stop: 05/21/20 21:06 Last Admin: 04/22/20 05:44 Dose: 650 mg Documented by: Lisinopril/HCTZ (Prinzide 10/12.5mg) 1 tab PO DAILY ALLISON Stop: 05/22/20 08:59 Last Admin: 04/22/20 08:14 Dose: 1 tab Documented by: Daptomycin 250 mg/ Syringe 5 mls @ 2.5 mls/min IV Q24H ALLISON; Protocol Stop: 04/27/20 20:01 Piperacillin Sod/Tazobactam (Sod 3.375 gm/ Dextrose) 115 mls @ 30 mls/hr IV Q8H ALLISON; Protocol Stop: 04/28/20 21:59 Last Admin: 04/22/20 13:32 Dose: 30 mls/hr Documented by: Ioversol (Optiray 320 100ml) 93 ml IV ONCE PRN PRN Reason: Interaction Checking Stop: 04/25/20 17:47 Last Admin: 04/21/20 17:49 Dose: 93 ml Documented by: Ketorolac Tromethamine (Toradol) 30 mg IV Q6H PRN PRN Reason: Pain Stop: 04/26/20 21:06 Last Admin: 04/22/20 13:54 Dose: 30 mg Documented by: Miscellaneous Information (Consult) 1 ea N/A UD PRN PRN Reason: Consult Stop: 05/21/20 19:37 Miscellaneous Information (Consult) 1 ea N/A UD PRN PRN Reason: Consult Stop: 05/21/20 21:56 Ondansetron HCl (Zofran) 4 mg IV Q6H PRN PRN Reason: Nausea Stop: 05/21/20 21:06 Pantoprazole Sodium (Protonix) 40 mg PO QAM [facility] Stop: 05/22/20 08:59 Last Admin: 04/22/20 08:14 Dose: 40 mg Documented by: Polyethylene Glycol (Miralax Powder Packet) 17 gm PO DAILY PRN PRN Reason: Constipation Stop: 05/21/20 21:06 PG Care Time/CCT Total # of Minutes Spent Total Time Spent with Patient: Total time spent is greater than 50% in coordination of care (as documented) at patient's floor/unit and/or counseling patient: Coding Level of Care Code 61342 Subseq Hosp Care Lvl 2 Diagnoses Cellulitis and abscess of neck L03.221; L02.11 Hypertension I10 Hypokalemia E87.6 DVT prophylaxis Z29.9
[2020-04-22] MEDS: DAPTOmycin 250 MG in SYRINGE 0 ML IV SCH (19:31)
[2020-04-22] MEDS: POTASSIUM CHLORIDE 10 MEQ TABCR PO SCH (21:00)
[2020-04-23] MEDS: PIPERACILLIN/TAZOBACTAM 3.375 GM in DEXTROSE 5% 100 ML IV SCH ×3 (06:00→21:58)
[2020-04-23 07:16] LABS: Basophils # (auto) 0.03 K/uL (0-0.2); Basophils % (auto) 0.2 %; Eosinophils # (auto) 0.48 K/uL (0-0.5); Eosinophils % (auto) 3.4 %; Hemoglobin 15.5 g/dL (14.0-18.0); Immature Granulocytes # (auto) 0.12 K/uL (0.00-0.02); Immature Granulocytes % (auto) 0.8 %; Lymphocytes # (auto) 2.82 K/uL (1.2-3.4); Mean Corpuscular Hemoglobin 30.9 pg (25-34); Mean Corpuscular Hgb Conc 35.2 g/dL (32-36); Mean Corpuscular Volume 87.8 fL (80-100); Mean Platelet Volume 9.6 fL (7.4-10.4); Monocytes # (auto) 1.55 K/uL (0.11-0.59); Neutrophils # (auto) 9.12 K/uL (1.4-6.5); Neutrophils % (auto) 64.6 %; Platelet Count 311 K/uL (130-400); RDW Coefficient of Variation 12.8 % (11.5-14.5); RDW Standard Deviation 41.2 fL (36.4-46.3); Red Blood Count 5.01 M/uL (4.7-6.1); White Blood Count 14.12 K/uL (4.8-10.8)
--- NOTE | 2020-04-23 07:25 | Electrocardiogram Report ---
Test Reason : Blood Pressure : / mmHG Vent. Rate : 084 BPM Atrial Rate : 084 BPM P-R Int : 118 ms QRS Dur : 082 ms QT Int : 336 ms P-R-T Axes : 043 006 -02 degrees QTc Int : 397 ms Normal sinus rhythm Nonspecific T wave abnormality Abnormal ECG No previous ECGs available Confirmed by Manoj Sigala ([id number]) on 04/23/2020 7:24:38 AM Referred By: Ely MCKEON Confirmed By:Manoj Sigala
[2020-04-23 07:43] LABS: BUN Creatinine Ratio 11.3 (10-20); Calcium 9.3 mg/dl (8.5-10.1); Creatinine Clr Calc Pharmacy 78.3 ml/min; Est GFR (African American) 88.9; Est GFR (Non-African American) 76.7; Potassium 3.6 mmol/L (3.5-5.1)
[2020-04-23] MEDS: LISINOPRIL/HCTZ 10/12.5MG TAB PO SCH (08:22)
[2020-04-23] MEDS: PANTOprazole 40 MG TAB PO SCH (08:22)
[2020-04-23] MEDS: ACETAMINOPHEN 325 MG TAB PO PRN ×2 (08:22→13:34)
[2020-04-23] MEDS: POTASSIUM CHLORIDE 10 MEQ TABCR PO SCH ×2 (08:22→19:53)
[2020-04-23] MEDS: KETOROLAC 30 MG/ML VIAL IV PRN (08:22)
--- NOTE | 2020-04-23 10:15 | Family Medicine Progress Note ---
Date of Service April 23, 2020 Assessment & Plan (1) Cellulitis and abscess of neck: Cellulitis and abscess of neck: - Continue Zosyn IV and daptomycin IV. - still with pain and swelling, but mildly improved from yesterday. - WBC 14.12 today from 15.11 yesterday. - Non-infective myositis appears less likely at this stage given history of infection in his ear with possible TM perforation. - ENT consulted to see Friday, for possible drainage of abscess. - Toradol and Tylenol PRN pain. Hypertension: - Continue lisinopril/HCTZ. - BP stable. Hypokalemia: - low at 3.3 on admission, 3.6 today after starting KCl 10meq BID x2 days. - Follow BMP while admitted. Code Status: FULL CODE FEN/GI: Heart Healthy, NPO at midnight for possible procedure tomorrow by ENT DVT ppx: SCDs Dispo: per ENT (2) Myositis: (3) Hypertension: (4) Hypokalemia: Admission and Anticipated Discharge Date Admission Date: April 21, 2020 Supervising Physician Co-Signing Physician Notes I personally examined the patient and verified all christianson points of history and exam, discussed case, and agree with decision making with Dr Crisostomo. feeling about the same - pain meds help but unfortunately when they wear off he more or less feels the same as hwen he came in. R sided neck pain vitals noted nad heent nc at mmm R side of neck visibly swollen a little dull erythema cellulitis/abscess of neck - clinical parameters seem improved, but unfortunately pain and swelling are not - probably will need surgical intervention/drainage - await ENT input. is stable - continue current abx for now. add NSAID to try to affect better pain control. Subjective Pt feeling better after getting some pain medication but feels that it wears off about an hour before he can have more. No fevers or chills. No difficulty swallowing or SOB. No ear pain. Reports that "everything started to happen around the time he got his ear infection". Review of Systems Ear, Nose, Mouth, Throat: + TMJ pain (right) and + neck lump (right sided swelling) Respiratory: no cough and no dyspnea Cardiovascular: no chest pain and no edema Gastrointestinal: no abdominal pain, no nausea, no vomiting, no constipation and no diarrhea/loose stools Physical Exam Constitutional: WD/WN, vitals as above ENMT: Ears: + mastoid abnormality (tenderness right mastoid); no external ear abnormality Mouth: no oropharynx abnormality and no oral mucosal abnormality Throat: uvula midline; no posterior oropharynx abnormality Neck: + submandibular swelling (right side, 6x6cm in size) and + neck tender (right SCM, swollen); no tracheal deviation Thyroid: normal thyroid Respiratory: normal respiratory effort, lungs clear to auscultation Cardiovascular: RRR, no murmur, no edema Gastrointestinal (Abdomen): normal bowel sounds, soft, nontender, no hepatosplenomegaly Skin: no rashes, warm and dry Psychiatric: A+Ox3, euthymic affect Results & Data ([facility]) Vital Signs (Past 12 Hours) Vital Signs Temp Pulse Resp BP BP Pulse Ox 04/23/20 08:00 37 C 82 18 150/90 H 98 04/22/20 23:43 36.9 C 66 18 129/78 96 Resident Activity Tracking Resident Involvement: Resident Care Provided Care Provided: Adult Hospital Medicine (1) Myositis Myositis location: other site Myositis type: infective Qualified Code(s): M60.08 - Infective myositis, other site
--- NOTE | 2020-04-23 13:35 | Billing Data ---
Date of Service April 23, 2020 Coding Level of Care Code 87315 Subseq Hosp Care Lvl 3
[2020-04-23] MEDS: KETOROLAC TROMETHAMINE 10 MG TABLET PO PRN ×2 (17:40→23:55)
[2020-04-23] MEDS: DAPTOmycin 250 MG in SYRINGE 0 ML IV SCH (19:53)
[2020-04-24] MEDS: PIPERACILLIN/TAZOBACTAM 3.375 GM in DEXTROSE 5% 100 ML IV SCH ×3 (05:23→21:28)
[2020-04-24 06:11] LABS: Basophils # (auto) 0.04 K/uL (0-0.2); Basophils % (auto) 0.3 %; Eosinophils # (auto) 0.48 K/uL (0-0.5); Eosinophils % (auto) 3.4 %; Hemoglobin 15.2 g/dL (14.0-18.0); Immature Granulocytes % (auto) 0.7 %; Lymphocytes # (auto) 3.05 K/uL (1.2-3.4); Lymphocytes % (auto) 21.8 %; Mean Corpuscular Hemoglobin 31.1 pg (25-34); Mean Corpuscular Hgb Conc 35.3 g/dL (32-36); Mean Corpuscular Volume 87.9 fL (80-100); Mean Platelet Volume 9.6 fL (7.4-10.4); Monocytes # (auto) 1.57 K/uL (0.11-0.59); Monocytes % (auto) 11.2 %; Neutrophils # (auto) 8.74 K/uL (1.4-6.5); Neutrophils % (auto) 62.6 %; Platelet Count 346 K/uL (130-400); RDW Coefficient of Variation 12.7 % (11.5-14.5); RDW Standard Deviation 40.5 fL (36.4-46.3); Red Blood Count 4.89 M/uL (4.7-6.1); White Blood Count 13.98 K/uL (4.8-10.8)
[2020-04-24] MEDS: KETOROLAC TROMETHAMINE 10 MG TABLET PO PRN ×2 (06:23→19:45)
[2020-04-24 06:42] LABS: Calcium 9.1 mg/dl (8.5-10.1); Creatinine Clr Calc Pharmacy 81.2 ml/min; Est GFR (African American) 92.9; Est GFR (Non-African American) 80.2; Potassium 3.7 mmol/L (3.5-5.1)
[2020-04-24] MEDS ORDERED: ACETAMINOPHEN 1,000 MG/100 ML VIAL IV PRN (10:10)
[2020-04-24] MEDS: PANTOprazole 40 MG TAB PO SCH (13:29)
[2020-04-24] MEDS: POTASSIUM CHLORIDE 10 MEQ TABCR PO SCH ×2 (13:29→19:44)
--- NOTE | 2020-04-24 13:32 | Hospitalist Progress Note ---
Date of Service April 24, 2020 Assessment & Plan (1) Cellulitis and abscess of neck: Cellulitis and abscess of neck: - Continue Zosyn IV and daptomycin IV. - Discussed case with Dr. Navas of ENT surgery who is concerned that this parapharyngeal abscess has the potential to drain to the mediastinum and will be taking him for I and D of abscess. -Will test patient for COVID not for symptoms but for pre op - Toradol and Tylenol PRN pain. Hypertension: - Continue lisinopril/HCTZ. - BP stable. FULL CODE FEN/GI: Heart Healthy, NPO at midnight for possible procedure tomorrow by ENT DVT ppx: SCDs Dispo: per ENT Admission and Anticipated Discharge Date Admission Date: April 21, 2020 Supervising Physician Co-Signing Physician Notes Resident Physician Supervision Note: I independently interviewed and examined the patient and verified the christianson history and physical, reviewed labs and image studies, discussed the case with the resident Dr. Daugherty and agree with the findings and care plan. Subjective Mr. Smith is continuing to have a large amount of swelling and tenderness of his right sub maxillary area. His pain at rest has improved, he is no longer having chills or fevers but he is still having the same level of discomfort with palpation of the neck and swelling appears if anything slightly worse. Remainder of review of systems negative. Review of Systems Review of Systems: All systems reviewed & are unremarkable except as noted in HPI & below Physical Exam Physical Exam: Constitutional: WD/WN, vitals as above ENMT: Ears: + mastoid abnormality (tenderness right mastoid); no external ear abnormality Mouth: no oropharynx abnormality and no oral mucosal abnormality Throat: uvula midline; no posterior oropharynx abnormality Neck: + submandibular swelling (right side, 4x6cm in size) and + neck tender (right SCM, swollen); no tracheal deviation Thyroid: normal thyroid Respiratory: normal respiratory effort, lungs clear to auscultation Cardiovascular: RRR, no murmur, no edema Gastrointestinal (Abdomen): normal bowel sounds, soft, nontender, no hepatosplenomegaly Skin: no rashes, warm and dry Psychiatric: A+Ox3, euthymic affect Results & Data Results & Data ([facility]) Vital Signs (Past 12 Hours) Vital Signs Temp Pulse Resp BP Pulse Ox 04/24/20 07:00 36.7 C 72 18 133/82 97 Resident Activity Tracking Resident Involvement: Resident Care Provided Care Provided: Adult Hospital Medicine
[2020-04-24] MEDS ORDERED: SUCCINYLCHOLINE CHLORIDE 20 MG/ML 10 ML VIAL IV ONE ×2 (14:57→16:26)
[2020-04-24] MEDS ORDERED: MIDAZOLAM HCL 1 MG/ML 2ML VIAL ONE ×2 (14:57→16:26)
[2020-04-24] MEDS ORDERED: PROPOFOL IV EMULSION 10 MG/ML 20 ML VIAL IV ONE ×2 (14:57→16:26)
[2020-04-24] MEDS ORDERED: fentaNYL citrate 100 MCG/2 ML VIAL ONE ×2 (14:57→16:26)
[2020-04-24] MEDS ORDERED: LIDOCAINE HCL 2% 2 ML VIAL/AMP(20MG/ML) INFIL ONE ×2 (14:57→16:26)
[2020-04-24] MEDS ORDERED: ONDANSETRON INJ 2 MG/ML 2 ML VIAL ONE ×2 (14:57→16:26)
[2020-04-24] MEDS ORDERED: ROCURONIUM BROMIDE 10 MG/ML 5 ML VIAL ONE (14:57)
[2020-04-24] MEDS: LISINOPRIL/HCTZ 10/12.5MG TAB PO SCH (15:38)
[2020-04-24] MEDS ORDERED: LIDOCAINE HCL 2% (LOCAL) INJ 50 ML VIAL ONE (16:30)
--- NOTE | 2020-04-24 16:41 | ENT Consultation ---
Date of Consultation April 24, 2020 Assessment & Plan (1) Cellulitis and abscess of neck: incision and drainage Present on Admission?: Yes History of Present Illness Reason for Consultation: neck abcess Attending Physician: Marcia Mendez MD History of Present Illness 48 yo with right neck abcess, no improvement after 48 hr. of IV antibiotics Allergies Allergy/AdvReac Type Severity Reaction Status Date / Time No Known Allergies Allergy Unverified 04/21/20 16:30 Home Medications Home Medications Medication Instructions Recorded Confirmed Type celecoxib [Celebrex] 200 mg PO DAILY 04/21/20 04/21/20 History levofloxacin 750 mg PO DAILY 04/21/20 04/21/20 History lisinopril-hydrochlorothiazide 1 tab PO DAILY 04/21/20 04/21/20 History Patient History Medical History Hepatitis C Hypertension Social History Preferred Language: Bengali Communication Ability: Effective Beliefs That Will Affect Care: None Current Living Situation: Other Current Living Situation Comment: [facility] Other Information That Helps Us Care for You: No Feels Safe at Home: Yes Safety Concerns: Feels Safe At This Time Smoking Status: Former smoker Tobacco Type: cigarettes ; Do You Dip or Chew Tobacco: No ; Smoking End Date: May 2019 ; Second Hand Exposure: No ; Tobacco Cessation Education Requested by Patient: No Hx Alcohol Use: No Hx Substance Use: No Physical Exam Constitutional: WD/WN, vitals as above Eyes: PERRL, conjunctivae normal, anicteric sclerae ENMT: external ear and nose normal, oropharynx normal Neck: right neck 4 cm. tender upper neck mass, redness mild Respiratory: normal respiratory effort, lungs clear to auscultation Cardiovascular: RRR, no murmur, no edema Results & Data ([facility]) Vital Signs (Past 12 Hours) Vital Signs Temp Pulse Resp BP Pulse Ox 04/24/20 15:00 36.7 C 68 18 127/80 98 04/24/20 07:00 36.7 C 72 18 133/82 97
--- NOTE | 2020-04-24 16:53 | Anesthesiology Consultation ---
Date of Service April 24, 2020 Assessment & Plan Chart Review Chart Review: Acceptable Risk for Surgery Consults Requested none History Surgery Operation Date: 04/24/20 08:10 Proposed Procedures p Right Lateral Neck Abscess Incision and Drainage - Mary Navas MD Height/Weight Height: 5 ft 6 in Weight: 77.8 kg Allergies Allergy/AdvReac Type Severity Reaction Status Date / Time No Known Allergies Allergy Unverified 04/21/20 16:30 Medications Home Medications Medication Instructions Recorded Confirmed Last Taken celecoxib [Celebrex] 200 mg PO DAILY 04/21/20 04/21/20 Unknown levofloxacin 750 mg PO DAILY 04/21/20 04/21/20 Unknown lisinopril-hydrochlorothiazide 1 tab PO DAILY 04/21/20 04/21/20 Unknown Active Medications Generic Name Dose Route Start Last Admin Trade Name Freq PRN Reason Stop Dose Admin Acetaminophen 650 mg 04/21/20 21:07 04/23/20 13:34 Tylenol PO 05/21/20 21:06 650 mg Q4H PRN Administration pain/fever Lisinopril/HCTZ 1 tab 04/22/20 09:00 04/24/20 15:38 Prinzide 10/12.5mg PO 05/22/20 08:59 Not Given DAILY ALLISON Daptomycin 250 mg/ Syringe 5 mls @ 2.5 mls/min 04/22/20 20:00 04/23/20 19:53 IV 04/27/20 20:01 2.5 mls/min Q24H ALLISON Administration Protocol Piperacillin Sod/Tazobactam 115 mls @ 30 mls/hr 04/21/20 22:00 04/24/20 13:35 Sod 3.375 gm/ Dextrose IV 04/28/20 21:59 30 mls/hr Q8H ALLISON Administration Protocol Acetaminophen 1,000 mg in 100 mls @ 400 mls/hr 04/24/20 10:10 04/24/20 10:34 Ofirmev IV 04/27/20 10:09 Infused Q8H PRN Infusion Pain Ioversol 93 ml 04/21/20 17:48 04/21/20 17:49 Optiray 320 100ml IV 04/25/20 17:47 93 ml ONCE PRN Administration Interaction Checking Ketorolac Tromethamine 10 mg 04/23/20 10:59 04/24/20 06:23 Toradol PO 04/27/20 10:58 10 mg Q6H PRN Administration Moderate Pain Pantoprazole Sodium 40 mg 04/22/20 09:00 04/24/20 13:29 Protonix PO 05/22/20 08:59 Not Given QAM ALLISON Potassium Chloride 10 meq 04/22/20 21:00 04/24/20 13:29 Klor-Con M10 PO 05/22/20 20:59 Not Given BID ALLISON NPO Date Last Intake of Fluids: 04/24/20 Time Last Intake of Fluids: 00:00 Date Last Intake of Solids: 04/24/20 Time Last Intake of Solids: 00:00 Past Medical History Medical History Hepatitis C Hypertension Social History Smoking Status: Former smoker tobacco type: cigarettes Do You Dip or Chew Tobacco: No Smoking End Date: May 2019 Hx Alcohol Use: No Hx Substance Use: No Physical Exam Vital Signs Last Vital Signs Temp 36.7 C 04/24/20 15:00 Pulse 68 04/24/20 15:00 Resp 18 04/24/20 15:00 BP 127/80 04/24/20 15:00 Pulse Ox 98 04/24/20 15:00 Testing Laboratory Results 04/24/20 05:49 04/24/20 05:49 PT 10.3 Seconds (9.0-12.0) 04/21/20 16:30 INR 1.0 (0.9-1.1) 04/21/20 16:30 04/21/20 16:30 Aerobic Blood Culture - Preliminary Blood No growth in Aerobic bottle after 48 hours. Anaerobic Blood Culture - Preliminary No growth in Anaerobic bottle after 48 hours. 04/21/20 16:45 Aerobic Blood Culture - Preliminary Blood No growth in Aerobic bottle after 48 hours. Anaerobic Blood Culture - Preliminary No growth in Anaerobic bottle after 48 hours.
[2020-04-24] MEDS ORDERED: HYDROmorphone INJ 2 MG/ML SYR/VIAL IV PRN (16:55)
[2020-04-24] MEDS ORDERED: ATROPINE SULFATE 0.1 MG/ML 10ML SYR IV PRN (16:55)
[2020-04-24] MEDS ORDERED: KETOROLAC 30 MG/ML VIAL IV PRN (16:55)
[2020-04-24] MEDS ORDERED: ONDANSETRON INJ 2 MG/ML 2 ML VIAL IV PRN (16:55)
[2020-04-24] MEDS ORDERED: METOCLOPRAMIDE HCL INJ 5 MG/ML 2 ML VIAL IV PRN (16:55)
[2020-04-24] MEDS ORDERED: PROMETHAZINE HCL 12.5 MG in SODIUM CHLORIDE 0.9% 50 ML IV PRN (16:55)
[2020-04-24] MEDS ORDERED: ePHEDrine sulfate 50 MG/ML AMP IV PRN (16:55)
--- NOTE | 2020-04-24 17:32 | Operative Report ---
Post Operative Report Pre & Post Diagnosis Operation Date: 04/24/20 08:10 Pre-Op Diagnosis: Cellulitis and abscess of right neck abcess Post-Op Diagnosis: Cellulitis and abscess of right neck abcess I identified the patient and participated in the time-out.: Yes Procedure Operation Date: 04/24/20 08:10 Actual Procedures p Right Lateral Deep Neck Abscess Incision and Drainage - Mary Navas MD Surgeon Mary Navas MD Door Paneler None Estimated Blood Loss 20 Findings Consistent with Post-Op Diagnosis Specimens Cultures Anesthesia Type General Complications none Disposition Accompanied Patient To Recovery: Yes Disposition: Recovery Room Indications Deep right neck abscess Description of Procedure He was brought to the operating room, properly identified, induced with general anesthesia with LMA and then prepped with ChloraPrep and then draped in the usual sterile manner after the proper waiting time. Right neck abscess was identified. Incision line was injected with 2% Xylocaine with 1 20,000 strength epinephrine. 18-gauge needle was used to aspirate the abscess which appeared to be deep in the parotid gland. Incision was made using a 15 blade carried down through the skin and subcutaneous layer and platysma layer. Then blunt dissection was performed using the mosquito hemostat to find the abscess cavity which was then widely opened, breaking up the loculations with a mosquito hemostat, and then irrigating the abscess cavity out with 40 cc of saline. Cultures were sent. Abscess cavity was packed with iodoform gauze and a light pressure dressing was placed. He tolerated the procedure well and was taken recovery area in satisfactory condition. I attest to the content of the Intraoperative Record and any orders documented therein. Any exceptions are noted below.
[2020-04-24] MEDS: fentaNYL citrate 100 MCG/2 ML VIAL IV PRN ×5 (17:53→18:08)
--- NOTE | 2020-04-24 18:57 | Anesthesiology Progress Note ---
Date of Service April 24, 2020 Anesthesia Post Procedure Vital Signs Vital Signs: Temp Pulse Pulse Pulse Resp BP BP 04/24/20 18:30 36.8 C 75 17 145/98 H 04/24/20 18:20 36.8 C 88 17 146/93 H 04/24/20 18:10 80 17 142/99 H 04/24/20 18:00 76 17 126/99 04/24/20 17:50 90 15 148/97 H 04/24/20 17:41 36.4 C L 86 15 156/92 H 04/24/20 16:40 37.2 C 80 18 147/81 H 04/24/20 15:00 36.7 C 68 18 127/80 04/24/20 07:00 36.7 C 72 18 133/82 04/23/20 23:51 36.8 C 78 18 143/83 H Pulse Ox 04/24/20 18:30 100 04/24/20 18:20 100 04/24/20 18:10 100 04/24/20 18:00 100 04/24/20 17:50 96 04/24/20 17:41 98 04/24/20 16:40 97 04/24/20 15:00 98 04/24/20 07:00 97 04/23/20 23:51 97 Pain Intensity Right Ear: Pain Intensity: 6 Transfer of Care Handoff Completed per policy Notes Mental Status: alert / awake / arousable and participated in evaluation Patient Amnestic to Procedure: Yes Nausea / Vomiting: adequately controlled Pain: adequately controlled Airway Patency, RR, SpO2: stable & adequate BP & HR: stable & adequate Hydration State: stable & adequate Anesthetic Complications: no major complications apparent
[2020-04-24] MEDS: DAPTOmycin 250 MG in SYRINGE 0 ML IV SCH (19:45)
[2020-04-25] MEDS ORDERED: MoRPHine SULFATE 2 MG/ML CARP IV STA (03:47)
[2020-04-25] MEDS ORDERED: KETOROLAC TROMETHAMINE 15 MG/ML VIAL IV ONE (03:54)
[2020-04-25] MEDS: PIPERACILLIN/TAZOBACTAM 3.375 GM in DEXTROSE 5% 100 ML IV SCH (05:10)
[2020-04-25 07:59] LABS: Basophils # (auto) 0.03 K/uL (0-0.2); Basophils % (auto) 0.3 %; Eosinophils # (auto) 0.47 K/uL (0-0.5); Eosinophils % (auto) 4.4 %; Hematocrit (blood only) 38.8 % (42-52); Hemoglobin 13.8 g/dL (14.0-18.0); Immature Granulocytes # (auto) 0.09 K/uL (0.00-0.02); Immature Granulocytes % (auto) 0.8 %; Mean Corpuscular Hemoglobin 31.2 pg (25-34); Mean Corpuscular Hgb Conc 35.6 g/dL (32-36); Mean Corpuscular Volume 87.8 fL (80-100); Mean Platelet Volume 9.3 fL (7.4-10.4); Monocytes # (auto) 1.41 K/uL (0.11-0.59); Monocytes % (auto) 13.1 %; Neutrophils # (auto) 5.97 K/uL (1.4-6.5); Neutrophils % (auto) 55.4 %; Platelet Count 306 K/uL (130-400); RDW Coefficient of Variation 12.4 % (11.5-14.5); RDW Standard Deviation 40.2 fL (36.4-46.3); Red Blood Count 4.42 M/uL (4.7-6.1); White Blood Count 10.77 K/uL (4.8-10.8)
[2020-04-25 08:30] LABS: BUN Creatinine Ratio 9.6 (10-20); Calcium 8.8 mg/dl (8.5-10.1); Creatinine Clr Calc Pharmacy 76.9 ml/min; Est GFR (Non-African American) 75.1; Potassium 3.6 mmol/L (3.5-5.1)
[2020-04-25] MEDS: PANTOprazole 40 MG TAB PO SCH (09:08)
[2020-04-25] MEDS: LISINOPRIL/HCTZ 10/12.5MG TAB PO SCH (09:08)
[2020-04-25] MEDS: POTASSIUM CHLORIDE 10 MEQ TABCR PO SCH (09:09)
[2020-04-25] MEDS: KETOROLAC TROMETHAMINE 10 MG TABLET PO PRN (12:53)
--- NOTE | 2020-04-25 13:54 | Discharge Summary ---
Date of Service April 25, 2020 Admission HPI Per Admitting Provider Marino Smith is a 48 year old male who presents to the ER from [facility] with right sternocleidomastoid swelling and pain for the last week getting progressively worse. He denies any fevers or chills. He reports a 1 month history that started with right ear pain and suspected external otitis externa requiring antibiotic ear drop causing significant pain which and he was using toilet paper in his ear to help with the pain. He returned to the [facility] 4-5 days and they were removing the tissue paper. At some point they also noted he had a perforated ear drum and he was having vertigo at that time. Started treatment with Augmentin approximately 2 weeks ago prior to neck swelling with a 7 day course. He feels the neck swelling started after he was started on the Augmentin. He then received a 5 day course of prednisone after the course of Augmentin although I am unclear on the reason for this. He reports 2 days ago he was switched to Levaquin due to the neck swelling but it has continued to progress despite these interventions. He denies any fevers or chills. It is significantly painful on palpation. He has never had anything similar to this before. No prior chronic problems with his ears. He does note a history of a "popped" clavicle on this side however although I am unclear what he means by this he says he was diagnosed by a physical therapist from all his weight lifting. Admission Exam Per Admitting Provider Constitutional: WD/WN, vitals as above Eyes: PERRL, conjunctivae normal, anicteric sclerae ENMT: Ears: + external ear abnormality (peeling skin in right ear canal but otherwise unremarkable); no TM abnormality (although unable to visualize all of right TM no perforation noted) Neck: + abnormal visual inspection (erythema and swelling along right SCM with lump at superior aspect) Respiratory: normal respiratory effort, lungs clear to auscultation Cardiovascular: RRR, no murmur, no edema Gastrointestinal (Abdomen): normal bowel sounds, soft, nontender, no hepatosplenomegaly Musculoskeletal: no cyanosis or clubbing, extremities motor strength 5/5 Skin: Erythema and swelling surrounding right SCM Neurologic: moves all extremities and awake; no focal motor deficits and not confused Motor/Sensory: no tremor Psychiatric: A+Ox3, euthymic affect Lymphatic: + cervical lymphadenopathy (right sided); no subclavicular lymphadenopathy Principal Diagnosis Abscess, Myositis Discharge Exam Constitutional: WD/WN, vitals as above ENMT: Ears: + mastoid abnormality (tenderness right mastoid); no external ear abnormality Mouth: no oropharynx abnormality and no oral mucosal abnormality Throat: uvula midline; no posterior oropharynx abnormality Neck: + submandibular swelling (right side, 4x6cm in size) and + neck tender (right SCM, swollen); no tracheal deviation Thyroid: normal thyroid Respiratory: normal respiratory effort, lungs clear to auscultation Cardiovascular: RRR, no murmur, no edema Gastrointestinal (Abdomen): normal bowel sounds, soft, nontender, no hepa tosplenomegaly Skin: Clean bandages in place packing in wound. Psychiatric: A+Ox3, euthymic affect Discharge Data Allergies Allergy/AdvReac Type Severity Reaction Status Date / Time No Known Allergies Allergy Unverified 04/21/20 16:30 Consultations 04/21/20 18:11 ED Decision to Admit Stat 04/22/20 20:31 Consult Otolaryngology (Head and Neck) Routine Procedures Performed Operation Date: 04/24/20 08:10 Actual Procedures p Right Lateral Deep Neck Abscess Incision and Drainage(Right) - Mary Navas MD Ordered Studies 04/21/20 16:24 CT soft tissue neck w con Stat Hospital Course (1) Cellulitis and abscess of neck: Cellulitis and abscess of neck: - Patient admitted after treatment failure of cellulitis with levofloxacin -CT showing myositis and para pharyngeal abscess near parotid gland was placed on Zosyn IV and daptomycin IV. - Discussed case with Dr. Navas of ENT surgery who is concerned that this parapharyngeal abscess has the potential to drain to the mediastinum and took him for I and D of abscess. Packing in place in wound, to be removed out slowly to allow healing from inside with secondary intention. Hypertension: - Continue lisinopril/HCTZ. - BP stable. -Patient with some hypokalemia, supplemented with 10 meq KCl BID Total Time Total Time Spent Total Time Spent (In Minutes): 35 Discharge Plan Discharge Items [facility] Reason For Visit: CELLULITIS RIGHT NECK Discharge Diagnosis: Cellulitis paraesophageal/parotid abscess Activity: As commented below Non-emergency contact: Primary Care Provider Call non-emergency contact if: you have any medication questions, your symptoms worsen, your pain is not controlled and your rectal temperature is above 100.4 Follow-up/Referrals: Ely MCKEON [Primary Care Provider] - Diet: Regular Addtl Attending Provider Instructions: Mr. Smith, It was our pleasure to treat you for your myositis and abscess or infection of your muscle with abscess around your parotid salivary gland. We have treated you with several days of IV antibiotics and will discharge you with a five day course of oral antibiotics. i expect your infection to continue to improve now that the abscess has been drained. if you notice any worsening or spreading pain and swelling, any fevers, or c hills, any Pending Studies at Discharge: No Stand-Alone Forms: My [facility] Skilled Items Patient informed of condition?: Yes Discharge Level of Care: Other Communicable Disease: No Discharge Prognosis: Stable Lines: None Urinary Catheter: No Medications and DC Order Prescriptions: New acetaminophen [Mapap (acetaminophen)] 325 mg Tablet 650 mg PO Q4H PRN (Reason: pain) 30 Days Qty: 120 RF: 0 amoxicillin-pot clavulanate [Augmentin] 875-125 mg Tablet 1 tab PO BIDM 5 Days Qty: 10 RF: 0 potassium chloride [Klor-Con M10] 10 mEq Tablet,Er Particles/Crystals 10 meq PO BID 10 Days Qty: 20 RF: 0 Continued celecoxib [Celebrex] 200 mg Capsule 200 mg PO DAILY RF: 0 lisinopril-hydrochlorothiazide 10-12.5 mg Tablet 1 tab PO DAILY RF: 0 Discontinued levofloxacin 750 mg Tablet 750 mg PO DAILY RF: 0 Discharge Orders: Discharge Order (Routine); Ordered 04/25/20 Ordered By: Roberto Daugherty Admission Data Admit Date/Time: 04/21/20 19:41 Attending Provider: Marcia Mendez Admit Provider: Austin Tolentino Primary Care Provider: Ely MCKEON Other Providers: Ashok Alvarez ; Ramos Harman ; Austin Tolentino ; Mary Navas How Other Interventions: Discharge Summary Assessment (RN) Last Done: 04/25/20 12:03 DC Date/Time DO NOT enter until pt leaves facility: 04/25/20 19:04 Supervising Physician Co-Signing Physician Notes Resident Physician Supervision Note: I independently interviewed and examined the patient and verified the christianson history and physical, reviewed labs and image studies, discussed the case with the resident Dr. Daugherty and agree with the findings and care plan. Time spent in discharge 35 min Resident Activity Tracking Resident Involvement: Resident Care Provided Care Provided: Adult Hospital Medicine
[2020-04-25] MEDS: ACETAMINOPHEN 325 MG TAB PO PRN (16:56)
[2020-04-25] MEDS ORDERED: AMOXICILLIN/CLAVULANATE 875 MG TAB PO SCH (17:00)
== END 2020-04-25 19:04 | DRG 133 ==
LOC: ED 15:08 → SUATTDRO 19:41 → 2W 19:41